=== PATIENT | female | born 1945 | race Caucasian/White ===

== ENCOUNTER → 2018-03-26 | Outpatient (CLI) | payer MEDICARE ==
[~2018-03-26] MED LIST: GADOBUTROL 7.5 MMOL/7.5 ML PFS ONE
== END | disposition home or self-care (01) ==
LOC: CFH 10:14
PROVIDERS: ATTEND Psychiatry & Neurology Neurology
DX: G93.89 Other specified disorders of brain (principal); R90.82 White matter disease, unspecified; D32.9 Benign neoplasm of meninges, unspecified
CPT/HCPCS: 70553; 82565; A9585

== ENCOUNTER 2020-12-02 10:03 | Emergency (ER) | payer MEDICARE ==
[~2020-12-02] VITALS: Ht 167.6 cm; Wt 59.1 kg
[2020-12-02] MEDS ORDERED: LEVE750T8 PO (11:10)
[2020-12-02] MEDS ORDERED: LEVO112T2 PO (11:13)
--- NOTE | 2020-12-02 11:14 | NUR ---
pt w hx meningioma and brain surgery 2003, dx sdh november 18 at [facility], has had mri. has been taking advil and tylenol for pain since. pain in R face, "my head feels like a pillow is in it". neuros grossly intact. law at bedside for eval. plan ct. vss. as
[2020-12-02] MEDS ORDERED: LIDOCAINE 4% TOPICAL SOLUTION 50 ML TP ONE (11:30)
--- NOTE | 2020-12-02 12:08 | NUR ---
PT REFUSED PAIN MEDS, AWAITING CT.
--- NOTE | 2020-12-02 12:39 | NUR ---
PT STILL AWAITING CT, EXPRESSED DISPLEASURE AT WAIT TIMES. PT TO BATHROOM. GAIT STEADY.
--- NOTE | 2020-12-02 13:25 | NUR ---
pt to and from ct. as
--- NOTE | 2020-12-02 14:05 | NUR ---
TASK RN NOTE: PT CHART UP FOR RECHECK. UPON ENTRY TO ROOM, PT FULLY DRESSED. WHEN RN ASKS TO TAKE VS, PT REPORTS SHES DONE WITH CT AND READY TO GO. SPO2 SALESPERSON BURIAL NEEDS FINGER AND RN ABLE TO TAKE MEASUREMENT OF THIS. NAD NOTED AT THIS TIME. PT MAKES JOKES WITH RN AND REPEATS SHE IS READY TO LEAVE.
--- NOTE | 2020-12-02 14:36 | NUR ---
PT UP FOR RECHECK.
--- NOTE | 2020-12-02 15:01 | NUR ---
PT CHANGED HER MIND, INTRANASAL LIDOCAINE PER MD ORDER.
[2020-12-02 16:00] VITALS: BP 147/69
== END 2020-12-02 16:02 | disposition home or self-care (01) ==
LOC: ED 11:30
DX: R51.9 Headache, unspecified (principal); G89.29 Other chronic pain
CPT/HCPCS: 70450; 99284